=== PATIENT | female | born 1955 | race Caucasian/White ===

== ENCOUNTER → 2022-09-22 | Outpatient (CLI) | payer MEDICARE | END | disposition home or self-care (01) | LOC: SHCH 14:27 | PROVIDERS: ATTEND Student in an Organized Health Care Education/Training Program | DX: R00.2 Palpitations (principal); I10 Essential (primary) hypertension; E78.5 Hyperlipidemia, unspecified | CPT/HCPCS: 93306 ==

== ENCOUNTER → 2022-12-24 | Outpatient (CLI) | payer MEDICARE ==
[2022-12-24 12:11] LABS: CREATININE 0.9 mg/dL (0.5-1.5); POTASSIUM 4.1 mmol/L (3.5-5.1)
== END | disposition home or self-care (01) ==
LOC: LAB 11:03
PROVIDERS: ATTEND Student in an Organized Health Care Education/Training Program
DX: I10 Essential (primary) hypertension (principal)
CPT/HCPCS: 36415; 80048

== ENCOUNTER → 2023-01-11 | Outpatient (CLI) | payer MEDICARE ==
[~2023-01-11] MED LIST: IOHEXOL 350 MG/ML 100ML INFUS..BTL IV ONE
== END | disposition home or self-care (01) ==
LOC: RAH 01-06 07:25
PROVIDERS: ATTEND Student in an Organized Health Care Education/Training Program
DX: R07.9 Chest pain, unspecified (principal); K44.9 Diaphragmatic hernia without obstruction or gangrene; M47.815 Spondylosis without myelopathy or radiculopathy, thoracolumbar region
CPT/HCPCS: 75574; Q9967

== ENCOUNTER 2023-05-06 05:48 | Day surgery (SDC) | payer MEDICARE ==
[2023-05-04 09:12] VITALS: BP 117/62; PULSE 57; RESP 17
[2023-05-04 09:14] LABS: BASOPHILS # (AUTO) 0.07 K/uL (0.00-0.20); BASOPHILS % (AUTO) 0.9 % (0.0-5.0); EOSINOPHILS # (AUTO) 0.23 K/uL (0.00-0.70); EOSINOPHILS % (AUTO) 2.9 % (0.0-8.0); HEMATOCRIT 47.5 % (36-48); IMMATURE GRANULOCYTE ABSOLUTE 0.02 K/uL (0-1); LYMPHOCYTES # (AUTO) 2.8 K/uL (1.0-4.8); LYMPHOCYTES % (AUTO) 35.7 % (21.0-51.0); MEAN CORPUSCULAR HEMOGLOBIN 28.1 pg (27.0-33.0); MEAN CORPUSCULAR HGB CONC 31.2 g/dL (32.0-36.0); MEAN CORPUSCULAR VOLUME 90.3 fL (79-99); MONOCYTES # (AUTO) 0.6 K/uL (0.1-1.0); MONOCYTES % (AUTO) 7.8 % (3.0-13.0); NEUTROPHILS # (AUTO) 4.2 K/uL (1.8-7.7); NEUTROPHILS % (AUTO) 52.4 % (40.0-77.0); PLATELET COUNT (AUTO) 322 K/uL (130-400); RED BLOOD CELL COUNT(AUTO) 5.26 MIL/uL (4.00-5.50); WHITE BLOOD COUNT (AUTO) 7.9 K/uL (4.8-10.8)
[2023-05-04 09:21] LABS: CREATININE 0.9 mg/dL (0.5-1.5); POTASSIUM 3.9 mmol/L (3.5-5.1)
[2023-05-04 09:24] LABS: INR < 0.93 (0.85-1.15); PROTHROMBIN TIME 10.5 SEC (9.6-11.6)
[2023-05-04 09:25] LABS: PARTIAL THROMBOPLASTIN TIME 31.6 SEC (26.3-35.5)
[2023-05-04 09:25] LABS: APPEARANCE,URINE CLEAR (CLEAR); BILIRUBIN,URINE NEGATIVE (NEGATIVE); GLUCOSE, URINE (UA) >=1000 mg/dL (NEGATIVE); KETONES,URINE NEGATIVE (NEGATIVE); LEUKOCYTE ESTERASE ,URINE NEGATIVE Leu/uL (NEGATIVE); NITRATE,URINE NEGATIVE (NEGATIVE); OCCULT BLOOD,URINE NEGATIVE (NEGATIVE); PROTEIN,URINE NEGATIVE (NEGATIVE); UROBILINOGEN,URINE 0.2 mg/dL (0.2-1.0)
[2023-05-04 09:26] LABS: ADD UA MICROSCOPIC YES; COLOR,URINE STRAW (YELLOW)
[2023-05-04 09:27] LABS: RBC,URINE 0-1 /HPF (0-1); SQUAMOUS EPITHELIAL CELL,UR FEW /HPF (0-2); WBC,URINE 0-1 /HPF (0-1)
[2023-05-04 09:37] LABS: B-TYPE NATRIURETIC PEPTIDE 12 pg/mL (0-100)
[~2023-05-06] VITALS: Ht 152.4 cm; Wt 74.9 kg
[~2023-05-06 05:48] MED LIST changes: +ATOR40TA71 PO; +DAPA10TA PO; +DULA1.5P SQ; +INS7030 SQ; -IOHEXOL 350 MG/ML 100ML INFUS..BTL IV ONE
[2023-05-06 06:13] VITALS: BP 127/59; PULSE 59; RESP 19
[2023-05-06] MEDS ORDERED: 0.9%NACL 1000ML 1,000 ML IV ONE (06:16)
[2023-05-06] MEDS ORDERED: NITROGLYCERIN 50MG VIAL ONE (07:10)
[2023-05-06] MEDS ORDERED: VERAPAMIL HCL 2.5 MG/ML VIAL ONE (07:10)
[2023-05-06] MEDS ORDERED: LIDOCAINE HCL 400MG/20ML VIAL ONE (07:10)
[2023-05-06] MEDS ORDERED: IOHEXOL 350 MG/ML 100ML INFUS..BTL IV ONE (07:10)
[2023-05-06] MEDS ORDERED: HEPARIN 10,000 UNIT/10ML (1,000 UNIT/ML) VIAL ONE (07:11)
[2023-05-06] MEDS ORDERED: FENTANYL CITRATE PF 50 MCG/1 ML 2ML VIAL ONE (07:27)
[2023-05-06] MEDS ORDERED: MIDAZOLAM HCL 1 MG/ML 2ML VIAL ONE (07:27)
[2023-05-06] MEDS ORDERED: probiotic gummies PO (07:57)
[2023-05-06] MEDS ORDERED: DEXTROSE 50%-WATER 50 ML DISP.SYRIN IV PRN (08:30)
[2023-05-06] MEDS ORDERED: GLUCAGON 1MG KIT 1 MG ML IM PRN (08:30)
== END 2023-05-06 09:02 | disposition still patient (30) ==
LOC: DAH 05:48
PROVIDERS: ATTEND Student in an Organized Health Care Education/Training Program
DX: I25.119 Atherosclerotic heart disease of native coronary artery with unspecified angina pectoris (principal); I10 Essential (primary) hypertension; E78.5 Hyperlipidemia, unspecified; E11.9 Type 2 diabetes mellitus without complications; I25.2 Old myocardial infarction; Z79.01 Long term (current) use of anticoagulants; Z79.899 Other long term (current) drug therapy; Z95.5 Presence of coronary angioplasty implant and graft; Z98.890 Other specified postprocedural states; Z79.4 Long term (current) use of insulin; Z79.82 Long term (current) use of aspirin
CPT/HCPCS: 80048; 83880 ×2; 85025 ×2; 85610 ×2; 85730 ×2; 81001; 36415 ×2; 71045 ×2; 93005 ×2; 93458; 99285; 82550; 83721; 84484; 80053; 82948 ×2; 70450; C1769; C1887; C1894; J3010; J3490 ×3; J7030; J1644 ×2; J2250; Q9967; A4215; A4222; A4221; A4663; A4216; A4606; Q9965; A4223 ×3; 99156; 99157

== ENCOUNTER 2023-05-06 09:02 | Emergency (ER) | payer MEDICARE ==
[~2023-05-06] VITALS: Ht 167.6 cm; Wt 74.8 kg
[~2023-05-06 09:02] MED LIST changes: +probiotic gummies PO
[2023-05-06 09:14] VITALS: BP 151/65; PULSE 56; RESP 18; O2SAT 99
[2023-05-06] MEDS ORDERED: ASPIRIN 300 MG SUPPOSITORY PR ONE (09:30)
[2023-05-06 09:31] LABS: BASOPHILS # (AUTO) 0.06 K/uL (0.00-0.20); BASOPHILS % (AUTO) 0.7 % (0.0-5.0); EOSINOPHILS # (AUTO) 0.27 K/uL (0.00-0.70); EOSINOPHILS % (AUTO) 3.2 % (0.0-8.0); HEMATOCRIT 43.1 % (36-48); IMMATURE GRANULOCYTE ABSOLUTE 0.02 K/uL (0-1); LYMPHOCYTES # (AUTO) 3.5 K/uL (1.0-4.8); LYMPHOCYTES % (AUTO) 41.8 % (21.0-51.0); MEAN CORPUSCULAR HEMOGLOBIN 28.2 pg (27.0-33.0); MEAN CORPUSCULAR HGB CONC 31.8 g/dL (32.0-36.0); MEAN CORPUSCULAR VOLUME 88.9 fL (79-99); MONOCYTES # (AUTO) 0.5 K/uL (0.1-1.0); MONOCYTES % (AUTO) 6.3 % (3.0-13.0); NEUTROPHILS % (AUTO) 47.8 % (40.0-77.0); PLATELET COUNT (AUTO) 297 K/uL (130-400); RED BLOOD CELL COUNT(AUTO) 4.85 MIL/uL (4.00-5.50); RED CELL DISTRIBUTION WIDTH 12.7 % (11.0-15.5); WHITE BLOOD COUNT (AUTO) 8.4 K/uL (4.8-10.8)
[2023-05-06 09:42] LABS: CREATININE 0.8 mg/dL (0.5-1.5); INR 0.94 (0.85-1.15); POTASSIUM 4.1 mmol/L (3.5-5.1); PROTHROMBIN TIME 10.9 SEC (9.6-11.6)
[2023-05-06 09:46] LABS: ALBUMIN 3.4 g/dL (3.5-5.0); BILIRUBIN,TOTAL 0.4 mg/dL (0.2-1.0); TOTAL PROTEIN, SERUM 7.1 g/dL (6.0-8.3)
[2023-05-06 10:04] LABS: B-TYPE NATRIURETIC PEPTIDE 25 pg/mL (0-100)
[2023-05-06 10:45] LABS: PARTIAL THROMBOPLASTIN TIME > 139.0 SEC (26.3-35.5)
== END 2023-05-06 10:00 | disposition short-term general hospital (02) ==
LOC: EDH 09:02
DX: I63.9 Cerebral infarction, unspecified (principal); E11.9 Type 2 diabetes mellitus without complications; I10 Essential (primary) hypertension; Z88.8 Allergy status to other drugs, medicaments and biological substances
CPT/HCPCS: 36415; 71045; 80053; 82550; 83721; 83880; 84484; 85025; 85610; 85730; 93005

== ENCOUNTER → 2023-10-01 | Outpatient (CLI) | payer MEDICARE ==
[2023-10-01 11:30] LABS: BASOPHILS # (AUTO) 0.05 K/uL (0.00-0.20); BASOPHILS % (AUTO) 0.7 % (0.0-5.0); EOSINOPHILS # (AUTO) 0.16 K/uL (0.00-0.70); EOSINOPHILS % (AUTO) 2.3 % (0.0-8.0); HEMATOCRIT 44.3 % (36-48); IMMATURE GRANULOCYTE ABSOLUTE 0.02 K/uL (0-1); MEAN CORPUSCULAR HEMOGLOBIN 28.5 pg (27.0-33.0); MEAN CORPUSCULAR HGB CONC 33.2 g/dL (32.0-36.0); MONOCYTES # (AUTO) 0.4 K/uL (0.1-1.0); MONOCYTES % (AUTO) 5.1 % (3.0-13.0); NEUTROPHILS # (AUTO) 4.5 K/uL (1.8-7.7); NEUTROPHILS % (AUTO) 63.6 % (40.0-77.0); PLATELET COUNT (AUTO) 311 K/uL (130-400); RED BLOOD CELL COUNT(AUTO) 5.15 MIL/uL (4.00-5.50)
[2023-10-01 11:37] LABS: HEMOGLOBIN A1C 6.8 % (4.0-6.0)
[2023-10-01 11:50] LABS: ALBUMIN 3.9 g/dL (3.5-5.0); BILIRUBIN,TOTAL 0.7 mg/dL (0.2-1.0); CREATININE 0.7 mg/dL (0.5-1.0); THYROID STIMULATING HORMONE 1.73 uIU/mL (0.36-3.74); TOTAL PROTEIN, SERUM 7.7 g/dL (6.0-8.3)
== END | disposition home or self-care (01) ==
LOC: LAB 10:44
PROVIDERS: ATTEND Internal Medicine Nephrology
DX: I10 Essential (primary) hypertension (principal); E11.8 Type 2 diabetes mellitus with unspecified complications; E78.5 Hyperlipidemia, unspecified; R53.83 Other fatigue; Z79.899 Other long term (current) drug therapy
CPT/HCPCS: 36415; 80053; 80061; 82043; 82306; 82570; 83036; 84443; 85025

== ENCOUNTER 2025-03-02 10:28 | Inpatient (IN) | payer MEDICARE ==
[2025-03-02] VITALS (20 sets, daily range): BP systolic 101–162; BP diastolic 51–76; PULSE 55–67; RESP 12–20; TEMP 97–97.9
[~2025-03-02] VITALS: Ht 152.4 cm; Wt 46.3 kg
--- NOTE | 2025-03-02 10:40 | ERN ---
General Chief Complaint: Ankle Problem Stated Complaint: ANKLE FRACTURE, SENT BY PCP Time Seen by MD: 10:35 History of Present Illness Initial Comments 69-year-old female, history of hypertension and prediabetes, presents for right ankle pain status post fall. Patient reports she tripped over a water hose this morning. She did not hit her head. She does not take blood thinners. She has pain to the right ankle generally with some mild swelling. Closed. Neurovascularly intact. She went to an outside facility and was told she had a bimalleolar fracture. Allergies: Coded Allergies: duloxetine (Unverified Allergy, Unknown, 05/04/23) lisinopril (Unverified Allergy, Unknown, 05/04/23) losartan (Unverified Allergy, Unknown, 05/04/23) pennie (Unverified Allergy, Unknown, 05/04/23) metformin (Unverified Allergy, Unknown, 05/04/23) Home Meds Reported Medications [probiotic gummies] No Conflict Check, 2 TAB PO AM 05/06/23 Dapagliflozin Propanediol (Farxiga) 10 Mg Tablet, 10 MG PO HS, TAB 05/04/23 Dulaglutide (Trulicity) 1.5 Mg/0.5 Ml Pen.injctr, 1.5 MG SQ QFRIDAY 05/04/23 Atorvastatin Calcium (Atorvastatin Calcium) 40 Mg Tablet, 40 MG PO HS, TAB 05/04/23 Hum Insulin NPH/Reg Insulin Hm (Humulin 70/30) 100 Unit/Ml (70-30) Inj, 42 UNITS SQ HS, ML 05/04/23 Past Medical History Past Medical History: Diabetes-Type II, Heart Disease, Hypertension Past Surgical History: Tonsillectomy, Other Surgical History Other: CARPAL TUNEEL, LEFT FOOT SX ROS Dictation CONSTITUTIONAL: No chills, no fever, no weakness, no diaphoresis, no malaise. HEAD/FACE: No signs of trauma. EENT: No eye pain, no blurred vision, no tearing, no double vision, no ear pain, no ear discharge, no nose pain, no nasal congestion, no throat pain, no throat swelling, no mouth pain. RESPIRATORY: No cough, no orthopnea, no SOB, no stridor, no wheezing. CARDIOVASCULAR: No chest pain, no edema, no palpitations, no syncope. GASTROINTESTINAL/ABDOMINAL: No abdominal pain, no constipation, no diarrhea, no nausea, no vomiting. GENITOURINARY: No abnormal discharge, no dysuria, no frequent urination, no hematuria. No complaints of pain in the genitals. MUSCULOSKELETAL: Right ankle pain INTEGUMENTARY: No change in color, no change in hair/nails, no dryness, no lesion, no lumps, no rash. NEUROLOGICAL/PSYCH: No anxiety, not depressed, no emotional problem, no headache, no numbness, no pre-existing deficit, no history of seizures, no tremors, no weakness. HEMATOLOGIC/LYMPHATIC: Not anemic, no history of blood clots, no apparent bleeding, no bruising, glands not swollen. All Systems Negative, Except as Noted. Physical Exam Physical Exam Dictation VITAL SIGNS: Reviewed. GENERAL APPEARANCE: Alert, oriented x3, no acute distress HEAD AND FACE: Non-traumatic. EYES: PERRL, pink conjunctivas, eyelid no trauma, anterior chamber clear. EARS: Pinnas intact and no signs of trauma or erythema. Ear canals clear and no discharge. TMs no erythema. NOSE: No discharge, no bleeding. OROPHARYNX: Mouth normal, teeth no caries, tongue pink. Pharynx clear, no erythema. Tonsils no exudates, no abscesses noted. Mucous membrane moist. NECK: Supple, non-tender, no thyromegaly, no masses, no JVD, no bruits. BREAST: Deferred. CHEST: No tenderness, no crepitus, no paradoxical movement, no retractions. LUNGS: Clear, well-ventilated, symmetric, no rales, no wheezing, no rhonchi, no stridor, good breath sounds bilaterally. HEART: Regular rate, regular rhythm, no murmur, no gallops. VASCULAR: No peripheral edema. ABDOMEN: Soft, positive bowel sounds, nondistended, no guarding, nontender, no rebound, no masses no hepatomegaly, no splenomegaly, no Pearson's sign, no hernias. RECTAL: Deferred. GENITAL: Deferred. NEUROLOGICAL: Normal speech, gross motor function intact, gross sensory function intact. MUSCULOSKELETAL: Neck nontender, full range of motion, back nontender, full range of motion. Right ankle tenderness in the lateral and medial malleolus with some mild swelling. Neurovascularly intact. No high fibular head pain EXTREMITIES: Nontender, full range of motion. SKIN: Color pink, dry, no turgor, no rash, no lacerations, no abrasions, no contusions. LYMPHATICS: Deferred. Results Laboratory and Microbiology Lab and Micro Result Laboratory Tests Test 03/02/25 12:31 White Blood Count 8.9 K/uL (4.8-10.8) Red Blood Count 5.50 MIL/uL (4.00-5.50) Hemoglobin 16.0 g/dL (12.0-16.0) Hematocrit 49.2 % (36-48) H Mean Corpuscular Volume 89.5 fL (79-99) Mean Corpuscular Hemoglobin 29.1 pg (27.0-33.0) Mean Corpuscular Hemoglobin Concent 32.5 g/dL (32.0-36.0) Red Cell Distribution Width 12.6 % (11.0-15.5) Platelet Count 255 K/uL (130-400) Mean Platelet Volume 9.2 fL (7.5-10.5) Immature Granulocyte % (Auto) 0.2 % (0-1) Neutrophils (%) (Auto) 67.8 % (40.0-77.0) Lymphocytes (%) (Auto) 26.0 % (21.0-51.0) Monocytes (%) (Auto) 4.3 % (3.0-13.0) Eosinophils (%) (Auto) 1.1 % (0.0-8.0) Basophils (%) (Auto) 0.6 % (0.0-5.0) Neutrophils # (Auto) 6.0 K/uL (1.8-7.7) Lymphocytes # (Auto) 2.3 K/uL (1.0-4.8) Monocytes # (Auto) 0.4 K/uL (0.1-1.0) Eosinophils # (Auto) 0.10 K/uL (0.00-0.70) Basophils # (Auto) 0.05 K/uL (0.00-0.20) Absolute Immature Granulocyte (auto 0.02 K/uL (0-1) Nucleated Red Blood Cells 0.0 % (0.0-0.19) Prothrombin Time 10.3 SEC (9.6-11.6) Prothromb Time International Ratio 0.97 (0.85-1.15) Activated Partial Thromboplast Time 29.3 SEC (26.3-35.5) Sodium Level 137 mmol/L (136-145) Potassium Level 4.3 mmol/L (3.5-5.1) Chloride Level 103 mmol/L (101-111) Carbon Dioxide Level 29 mmol/L (21-32) Blood Urea Nitrogen 27 mg/dL (7-18) H Creatinine 0.7 mg/dL (0.5-1.0) Glomerular Filtration Rate Calc 94 mL/min (>90) Random Glucose 129 mg/dL (70-105) H Total Calcium 9.2 mg/dL (8.5-10.1) MDM CC: Right ankle pain Historian: Patient Comorbidities: Hypertension that he has Limitations by social determinants of health: None Differential diagnosis: Fracture versus soft tissue injury X-ray per my independent interpretation shows a bimalleolar fracture with mild displacement of the fibula side. Consulted orthopedist. Dr. Root. She recommends admission, NPO, splint. Splint placed. IV established, labs drawn for preoperative assessment. EKG ordered. Discussed the case with the hospitalist for admission. ED Course Orders Procedure Category Date Status Time Ankle Comp 3vws Rt RAD 03/02/25 Resulted 10:37 Ibuprofen 600 Mg PHA 03/02/25 Complete Tablet (Motrin) 11:30 Cbc With Differential LAB 03/02/25 Complete 11:58 Basic Metabolic Panel LAB 03/02/25 Complete 11:58 Prothrombin Time With LAB 03/02/25 Complete INR 11:58 Partial LAB 03/02/25 Complete Thromboplastin Time 11:58 Chest 1vw RAD 03/02/25 Resulted 11:58 12 Lead Ekg Tracing- EKG 03/02/25 Resulted Technical 11:58 Finger(S) 2+Vws Rt RAD 03/02/25 Resulted 11:58 Orthopedic Consult CONPHYSVC 03/02/25 Transmitted 12:05 Nothing By Mouth DIET 03/02/25 Transmitted Lunch Obtain Consent For: CPOE 03/02/25 Transmitted 12:15 Hydromorphone 0.5mg PHA 03/02/25 Complete Syg (Dilaudid 0.5mg 13:30 Current Medications Medications (Trade) Dose Ordered Sig/Tavon Route PRN Reason Start Time Stop Time Status Last Admin Dose Admin Ibuprofen (moTRIN) 600 mg ONCE ONCE PO 03/02/25 11:30 03/02/25 11:31 DC 03/02/25 11:39 Vital Signs Date Time Temp Pulse Resp B/P (MAP) Pulse Ox O2 Delivery O2 Flow Rate FiO2 03/02/25 13:10 98.1 64 18 111/61 99 Room Air* 0 03/02/25 10:46 98.1 60 18 115/58 99 Room Air* 0 03/02/25 10:31 98.1 67 18 112/59 99 Room Air DX & DISP Disposition: Inpatient Departure Impression: Primary Impression: Bimalleolar fracture of right ankle Condition: Stable Referrals: MEGHAN ARANDA MD (PCP) CHARLEEN TREVINO DO Mar 02, 2025 10:40
--- NOTE | 2025-03-02 11:54 | HMCIMG ---
EXAM: CR right ankle, 3 View. CLINICAL HISTORY: fracture COMPARISON: None provided. FINDINGS: Mildly displaced oblique fracture of the distal fibula. Mildly displaced fracture of the medial malleolus. Suspected nondisplaced fracture of the posterior malleolus. The ankle mortise, subtalar joint, and visualized midfoot joints remain anatomically aligned. There is an ankle joint effusion and edema surrounding the ankle. IMPRESSION: 1. Bimalleolar ankle fracture with suspected posterior malleolus involvement 2. Ankle joint effusion with surrounding soft tissue edema /[place]
--- NOTE | 2025-03-02 12:30 | EKG ---
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
[2025-03-02 12:43] LABS: IMMATURE GRANULOCYTE ABSOLUTE 0.02 K/uL (0-1); NUCLEATED RED BLOOD CELLS 0.0 % (0.0-0.19); PLATELET COUNT (AUTO) 255 K/uL (130-400); RED BLOOD CELL COUNT(AUTO) 5.50 MIL/uL (4.00-5.50); RED CELL DISTRIBUTION WIDTH 12.6 % (11.0-15.5); WHITE BLOOD COUNT (AUTO) 8.9 K/uL (4.8-10.8)
[2025-03-02 12:55] LABS: CREATININE 0.7 mg/dL (0.5-1.0); GLOMERULAR FILTR. RATE CALC 94.0 mL/min (>90); GLUCOSE,RANDOM 129.0 mg/dL (70-105); SODIUM SERUM 137.0 mmol/L (136-145); UREA NITROGEN, BLOOD 27.0 mg/dL (7-18)
[2025-03-02 12:58] LABS: INR 0.97 (0.85-1.15)
--- NOTE | 2025-03-02 13:02 | HMCIMG ---
FINGER(S) 2+VWS RT REASON: pre-op TECHNIQUE: 3 views were obtained. FINDINGS: There is no evidence of fracture or dislocation. There is mild narrowing of the interphalangeal joints. There is no joint effusion. The soft tissues appear unremarkable. There is no evidence of a radiopaque foreign body. There is osteopenia of the osseous structure. IMPRESSION: No acute findings. No acute fracture or dislocation
--- NOTE | 2025-03-02 13:06 | HMCIMG ---
CHEST 1VW REASON: pre-op COMPARISON: Prior chest radiograph from 05/06/2023 is available. FINDINGS: Single view of the chest was obtained. Lungs are clear. Heart size is normal. There is no pulmonary vascular congestion. Mediastinum and bony thorax appear unremarkable. There is mild osteoarthritic changes with osteophyte seen in thoracic spine. IMPRESSION: 1. No acute cardiopulmonary process and unchanged from prior study.
--- NOTE | 2025-03-02 13:09 | NUR ---
SX CONSENT SIGNED BY PATIENT
--- NOTE | 2025-03-02 13:55 | NUR ---
DR RANKIN AT BEDSIDE FOR ADMISSION ASSESSMENT
[2025-03-02] MEDS ORDERED: REPA1TAB5 PO (15:48)
[2025-03-02] MEDS ORDERED: PREG75CA76 PO (15:48)
[2025-03-02] MEDS ORDERED: ASPI-1443 PO (15:48)
[2025-03-02] MEDS: ENOXAPARIN SODIUM 60 MG/0.6 ML SQ SCH (16:00)
--- NOTE | 2025-03-02 16:02 | NUR ---
OR NURSES HERE FOR PT. PT AOX4 NO SIGNS OF DISTRESS. PAPERWORK GIVEN TO CHANO Bobby RN
[2025-03-02] MEDS ORDERED: LIDOCAINE PF 100MG/5ML (2%) SYRINGE 5ML ONE (16:21)
[2025-03-02] MEDS ORDERED: SUCCINYLCHOLINE CHLORIDE 20 MG/ML 10 ML VIAL ONE (16:22)
[2025-03-02] MEDS ORDERED: MIDAZOLAM HCL 1 MG/ML 2ML VIAL ONE (16:24)
--- NOTE | 2025-03-02 17:04 | CONS ---
CONSULTATION NOTE Date of Service: Mar 02, 2025 Reason for Consultation: Right ankle fracture Requesting Physician: Dr. Diaz HISTORY OF PRESENT ILLNESS: 69-year-old female status post ground level fall after tripping over the wound who sustaining injury to her right ankle. Patient was seen in the emergency room where x-rays showed a right trimalleolar ankle fracture. Orthopedics was consulted for the management of this. REVIEW OF SYSTEMS CONSTITUTIONAL: Denies fever, chills, or fatigue. HEAD/FACE: No signs of trauma. EENT: Denies eye pain, blurred vision, double vision, or light sensitivity. RESPIRATORY: Denies shortness of breath, cough, wheezing CARDIOVASCULAR: Denies chest pain, palpitation, syncope GASTROINTESTINAL/ABDOMINAL: Denies abdominal pain, constipation, diarrhea, nausea or vomiting GENITOURINARY: Denies dysuria or hematuria. MUSCULOSKELETAL: Reports joint pain, tenderness, and trauma. INTEGUMENTARY: Denies rash or itchiness NEUROLOGICAL/PSYCH: Denies anxiety, depression, heat or cold intolerance. PAST MEDICAL HISTORY: Diabetes PAST SURGICAL HISTORY: Left transmetatarsal amputation Bilateral carpal tunnel release Lumpectomy Tonsillectomy PAST SOCIAL HISTORY: Denies tobacco or illicit drug use Rare alcohol use Lives independently and uses no assistive devices for ambulation FAMILY HISTORY: Noncontributory Coded Allergies: duloxetine (Unverified Allergy, Unknown, 05/04/23) lisinopril (Unverified Allergy, Unknown, 05/04/23) losartan (Unverified Allergy, Unknown, 05/04/23) pennie (Unverified Allergy, Unknown, 05/04/23) metformin (Unverified Allergy, Unknown, 05/04/23) PHYSICAL EXAM EYES: Anicteric. HENT: Moist Oral mucosa NECK: Supple LUNGS: Nonlabored breathing CARDIOVASCULAR: Regular rate ABDOMEN: Nondistended CENTRAL NERVOUS SYSTEM: Awake, alert, oriented x 3. No focal deficits. SKIN: No lacerations, no abrasions, no ecchymosis LYMPHATICS: No peripheral lymphadenopathy MUSCULOSKELETAL: Right lower extremity with splint in place without gross deformity. Sensation intact to light touch in superficial and deep peroneal as well as tibial nerve distribution. Brisk capillary refill x5. Intact EHL and FHL function EXTREMITIES: No cyanosis or clubbing BACK: Deferred GENITOURINARY: Deferred Vital Sign (Last 24 Hours) 03/02/25 15:43 Temp 98.1 Pulse 64 Resp 18 B/P (MAP) 123/96 Pulse Ox 99 O2 Delivery Room Air* O2 Flow Rate 0 FiO2 21 LABS: Laboratory: Test 03/02/25 12:31 Range/Units White Blood Count 8.9 4.8-10.8 K/uL Red Blood Count 5.50 4.00-5.50 MIL/uL Hemoglobin 16.0 12.0-16.0 g/dL Hematocrit 49.2 H 36-48 % Mean Corpuscular Volume 89.5 79-99 fL Mean Corpuscular Hemoglobin 29.1 27.0-33.0 pg Mean Corpuscular Hemoglobin Concent 32.5 32.0-36.0 g/dL Red Cell Distribution Width 12.6 11.0-15.5 % Platelet Count 255 130-400 K/uL Mean Platelet Volume 9.2 7.5-10.5 fL Immature Granulocyte % (Auto) 0.2 0-1 % Neutrophils (%) (Auto) 67.8 40.0-77.0 % Lymphocytes (%) (Auto) 26.0 21.0-51.0 % Monocytes (%) (Auto) 4.3 3.0-13.0 % Eosinophils (%) (Auto) 1.1 0.0-8.0 % Basophils (%) (Auto) 0.6 0.0-5.0 % Neutrophils # (Auto) 6.0 1.8-7.7 K/uL Lymphocytes # (Auto) 2.3 1.0-4.8 K/uL Monocytes # (Auto) 0.4 0.1-1.0 K/uL Eosinophils # (Auto) 0.10 0.00-0.70 K/uL Basophils # (Auto) 0.05 0.00-0.20 K/uL Absolute Immature Granulocyte (auto 0.02 0-1 K/uL Nucleated Red Blood Cells 0.0 0.0-0.19 % Prothrombin Time 10.3 9.6-11.6 SEC Prothromb Time International Ratio 0.97 0.85-1.15 Activated Partial Thromboplast Time 29.3 26.3-35.5 SEC Sodium Level 137 136-145 mmol/L Potassium Level 4.3 3.5-5.1 mmol/L Chloride Level 103 101-111 mmol/L Carbon Dioxide Level 29 21-32 mmol/L Blood Urea Nitrogen 27 H 7-18 mg/dL Creatinine 0.7 0.5-1.0 mg/dL Glomerular Filtration Rate Calc 94 >90 mL/min Random Glucose 129 H 70-105 mg/dL Total Calcium 9.2 8.5-10.1 mg/dL DIAGNOSTICS / RADIOLOGY: Three views of the right ankle with Trimalleolar right ankle fracture with minimal displacement ASSESSMENT: 69-year-old diabetic female with right trimalleolar ankle fracture PLAN: Discussed with the patient the risks, benefits, and alternatives to undergoing operative fixation and she was agreeable. to OR today for open reduction internal fixation right ankle LINDY LAWSON MD Mar 02, 2025 17:04
[2025-03-02] MEDS ORDERED: GLYCOPYRROLATE 0.2 MG/ML 5 ML VIAL ONE (17:11)
--- NOTE | 2025-03-02 18:38 | NUR ---
PT GOING TO ROOM 425 CALLED FLOOR ROOM IS DIRTY PT IS IN OR LEFT ER AT 1600
--- NOTE | 2025-03-02 18:46 | OP ---
Operative Note: DATE OF PROCEDURE: 03/02/25 SURGEON: LINDY LAWSON MD CORPORATE RESPONSIBILITY OFFICER: Navin Mancilla ANESTHESIA: General and femoral and popliteal blocks ANESTHESIOLOGIST/TOLL GATE TENDER: Frandy Joy CRNA PREOPERATIVE DIAGNOSIS: Right ankle trimalleolar fracture POSTOPERATIVE DIAGNOSIS: Right ankle trimalleolar fracture PROCEDURE: Open reduction internal fixation of medial and lateral malleoli from right trimalleolar ankle fracture ESTIMATED BLOOD LOSS: 10 cc INDICATIONS: 69-year-old female status post ground level fall with a right ankle injury. Seen in emergency room with right ankle trimalleolar fracture. After discussion of the risks, benefits, and alternatives, the patient voluntarily agreed to undergo the aforementioned procedure. IMPLANTS: [employer] five hole distal fibular locking plate with 3.5 mm locking screws, 4.0 mm partially-threaded cannulated screw x1 DESCRIPTION OF PROCEDURE: Patient was properly identified in the preoperative holding area. Surgical site marking was verified and surgery consent reviewed. The patient was then taken to the operating room and placed in supine position on the OR table. After induction of general anesthesia, preoperative antibiotics were given, all bony prominences were well-padded, and a well padded tourniquet was applied but not inflated at this time. The right lower extremity was then prepped and draped in usual sterile fashion. Surgical timeout was done verifying correct surgery, side, site, and location to be performed. We then began the procedure by exsanguinating the limb using Esmarch and inflating the tourniquet to 350 mmHg. We then used a 15 blade to make approximately 10 cm long incision directly over the lateral malleolus centered over the fracture site. We came sharply through the skin dissected carefully through the subcutaneous tissue and identified the subcutaneous border of the fibula. We cut down sharply onto the fibula using a 15 blade. We then used our periosteal elevator to elevate soft tissue off of the bone both in the proximal and distal direction as well as anterior and posterior direction. We identified the fracture site. The fracture site was then distracted and interposed soft tissue and hematoma was debrided using a curette. We then achieved our fracture reduction using a lion-jaw clamp and held our reduction with a [id number] reduction clamp. This was then visualized under AP and mortise fluoroscopic views and found to be appropriately reduced with fibula out to length. We then selected a plate. This was then held in place proximally and distally with a 3.5 mm cortical screws. We verified under fluoroscopic views of the the hardware was in appropriate position and fracture reduction maintained. We then began to drill and fill to screw holes above and below the fracture site with 3.5 locking screws. The distal cortical screw was removed as it did not have good purchase and replaced with a locking screw. This was done in standard fashion. At this point we focused our attention on the medial malleolus where we made an approximately 5 cm long incision. We then dissected carefully through the subcutaneous tissue. We then identified our fracture site and cleaned surrounding periosteum and other soft tissue as well as hematoma from within the fracture site. The fracture reduction was then verified to be reduced under AP and mortise fluoroscopic views. We then placed our guidepin for cancellus screw and verified these to be appropriate position under AP lateral and mortise fluoroscopic views. We then drilled and filled over the guide pin in standard fashion. Once we had this hardware in place we then removed the guidewire. We then obtained our final AP mortise and lateral fluoroscopic views. These were saved to the PACS system and they were interpreted by me. We then thoroughly irrigated out the wound with normal saline and began to repair the subcutaneous tissue using a 2-0 Vicryl. Running 3-0 Monocryl in subcuticular fashion with Dermabond applied over this was used to close the skin. Sterile dressing with a posterior splint with a U was then applied. Tourniquet was then deflated. Patient was awakened from anesthesia and taken to the recovery room in stable condition. LINDY LAWSON MD Mar 02, 2025 18:46
[2025-03-02] MEDS: 0.9%NACL 1000ML 1,000 ML IV SCH (19:00)
[2025-03-02] MEDS ORDERED: CALCIUM CARB 500MG PO PRN (19:00)
[2025-03-02] MEDS ORDERED: PoTASSium chl 10% ELIXIR 20MEQ 20 MEQ/15 ML UDCUP PO PRN (19:00)
[2025-03-02] MEDS ORDERED: PoTASSium chloRIDE 20MEQ ER 20 MEQ ERTAB PO PRN (19:00)
[2025-03-02] MEDS ORDERED: FERROUS FUMARATE 324 MG TABLET PO PRN (19:00)
[2025-03-02] MEDS ORDERED: HYDROcodone/APAP 5/325 1 TAB TABLET PO PRN ×2 (19:00→20:00)
--- NOTE | 2025-03-02 21:49 | HP ---
DATE OF SERVICE: 03/02/2025 HISTORY AND PHYSICAL PRESENTING COMPLAINT: Right ankle pain and swelling. HISTORY OF PRESENT ILLNESS: A 69-year-old female with history of hypertension, diabetes mellitus, presented to the hospital with right ankle pain after sustaining a fall at home. The patient claims she tripped on a hole and fell to the ground. No history of headache or dizziness. Denies syncopal episode. No chest pain. No palpitation. No orthopnea. X-ray of the right ankle shows right bimalleolar fracture. This has been discussed by the ER physician with orthopedics who advised to keep the patient n.p.o. in case of surgery will be done today. PAST MEDICAL HISTORY: * Diabetes mellitus. * Hypertension. * Left foot infection PAST SURGICAL HISTORY: * Left foot transmetatarsal amputation. * Right leg wound debridement. * Upper abdominal surgery. * Hysterectomy ALLERGIES: No known drug allergies. HOME MEDICATIONS: To be reviewed. SOCIAL HISTORY: No alcohol, tobacco or illicit drug use. FAMILY HISTORY: Positive for diabetes mellitus. REVIEW OF SYSTEMS: CONSTITUTIONAL: No fever or chills. No weight loss or night sweats. EYES: No eye pain. No photophobia or diplopia. HENT: No sore throat. No rhinorrhea or earache. NECK: No neck pain or neck swelling. RESPIRATORY: No cough. No hemoptysis or pleuritic pain. CARDIOVASCULAR: No chest pain. No palpitations or orthopnea. GASTROINTESTINAL: Denies nausea, vomiting, or abdominal pain. GENITOURINARY: No dysuria, urgency, or urinary frequency. CENTRAL NERVOUS SYSTEM: No headache, dizziness or slurred speech. PSYCHIATRIC: No depression. No suicidal ideation. MUSCULOSKELETAL: Positive for right ankle pain, swelling. No redness. PHYSICAL EXAMINATION: GENERAL: Elderly female, awake. VITAL SIGNS: Temperature 98.1, pulse is 64, respiratory rate 18, BP 121/61. EYES: No icterus. Pupils are equal and reactive. HENT: No oral thrush seen. Moist oral mucosa. NECK: Supple. No JVD or thyromegaly. LUNGS: Good air entry. No rales. No rhonchi. CARDIOVASCULAR SYSTEM: S1 and S2 regular. No murmur heard. ABDOMEN: Full, soft, nontender. Bowel sounds pleasant. CENTRAL NERVOUS SYSTEM: Awake, alert and oriented x 3. No focal deficits. SKIN: No rashes. No itchiness. LYMPHATIC: No peripheral lymphadenopathy. BACK: No deformity. No pressure ulcer. MUSCULOSKELETAL: Tenderness, edema, deformity involving the right ankle. LABORATORY DATA: Sodium 137, potassium 4.3, BUN 27, creatinine 0.7. WBC 8.9, hemoglobin 16.0, platelets 255. RADIOLOGY: Right ankle x-ray showed right ankle bimalleolar fracture. ASSESSMENT: A 69-year-old female admitted with fall. Current problems include: * Right ankle bimalleolar fracture * Mechanical fall. * Hypertension. * Diabetes mellitus. PLAN: * Admit the patient to medical floor. * The patient made n. p.o. * Morphine as need for pain or fever. * Zofran as needed for nausea and vomiting * ADA diet. * Insulin sliding scale. * Lovenox for DVT prophylaxis. * Orthopedic evaluation. * Home medications will be reconciled. TID: [id number] RECEIPT: [id number] MTD
[2025-03-02] MEDS: HYDROcodone/APAP 5/325 1 TAB TABLET PO PRN (23:15)
[2025-03-03] VITALS (8 sets, daily range): BP systolic 103–149; BP diastolic 52–71; PULSE 60–89; RESP 17–20; TEMP 97.6–98.5; O2SAT 98–100
[2025-03-03 05:11] LABS: IMMATURE GRANULOCYTE ABSOLUTE 0.03 K/uL (0-1); NUCLEATED RED BLOOD CELLS 0.0 % (0.0-0.19); PLATELET COUNT (AUTO) 256 K/uL (130-400); RED BLOOD CELL COUNT(AUTO) 4.67 MIL/uL (4.00-5.50); RED CELL DISTRIBUTION WIDTH 12.7 % (11.0-15.5); WHITE BLOOD COUNT (AUTO) 8.2 K/uL (4.8-10.8)
[2025-03-03 05:20] LABS: INR 0.97 (0.85-1.15)
[2025-03-03 05:29] LABS: ASPARTATE AMINOTRANSFERASE 27.0 U/L (10-37); CREATININE 0.7 mg/dL (0.5-1.0); GLOMERULAR FILTR. RATE CALC 94.0 mL/min (>90); GLUCOSE,RANDOM 188.0 mg/dL (70-105); SODIUM SERUM 140.0 mmol/L (136-145); TOTAL PROTEIN, SERUM 6.5 g/dL (6.0-8.3); UREA NITROGEN, BLOOD 24.0 mg/dL (7-18)
--- NOTE | 2025-03-03 09:56 | HMCIMG ---
ANKLE COMP 3VWS RT REASON: ORIF RIGHT ANKLE TECHNIQUE: 5 views were obtained. FINDINGS: Patient is undergoing a right ankle ORIF with placement of orthopedic plates in the distal fibula and orthopedic screw seen in the medial malleolus. Orthopedic hardware in the ankle mortise joint appears to be anatomical position.. Fluoroscopy time 44.7 seconds IMPRESSION: Details of the finding in the operative notes.
--- NOTE | 2025-03-03 13:51 | NUR ---
DCP: INITIAL ASSESSMENT Patient lives alone. She has no home services or DME. Patient is able to complete ADLs independently and drives. PCP is Dr. Miryam Whitt. Pharmacy is [facility] located on [address] [place] [address] in [place]. Patient voiced no safety concerns regarding returning home and states she has no difficulty with housing or buying food. DCP is home. Addendum: 03/03/25 at 1352 by MARICEL HATFIELD SS Amended: Links added.
--- NOTE | 2025-03-03 13:52 | NUR ---
EMERGENCY CONTACTS Bina Camacho (son) - Jonna Little (sibling)
[2025-03-03] MEDS: PSYLLIUM SEED 1 EACH PACKET PO SCH (14:25)
[2025-03-03] MEDS ORDERED: REPA1TAB5 PO (16:52)
[2025-03-03] MEDS ORDERED: SEMA2PEN SQ (16:52)
[2025-03-03] MEDS ORDERED: ASPI-1197 PO (16:52)
[2025-03-03] MEDS ORDERED: PREG75CA76 PO (16:52)
[2025-03-03] MEDS: REPAGLINIDE 1 MG TAB PO SCH (17:00)
[2025-03-03] MEDS: ASPIRIN 81MG CHEW TAB PO SCH (20:52)
[2025-03-03] MEDS: (Dapagliflozin Propanediol (Farxiga) 10 MG) PO SCH (20:58)
--- NOTE | 2025-03-03 21:25 | PN ---
INFECTIOUS DISEASE PROGRESS NOTE Date of Service: Mar 03, 2025 SUBJECTIVE: This is a 69-year-old female patient who was admitted for right ankle pain after sustaining a fall at home. An x-ray of the right ankle showed a bimalleolar ankle fracture with suspected posterior malleolus involvement. Orthopedic surgeon was consulted and patient underwent an open reduction internal fixation of medial and lateral malleoli from the right trimalleolar ankle fracture. During rounding today patient is pending physical therapy evaluation. Splint in place. Stated pain is tolerable at this time. We will continue to follow patient's care. PHYSICAL EXAM EYES: Anicteric. Pupils equal and reactive. HENT: No oral thrush seen, moist Oral mucosa NECK: Supple, no JVD or thyromegaly. LUNGS: Good air entry. No rales, no rhonchi. CARDIOVASCULAR: S1, S2 regular. No murmur heard. ABDOMEN: Soft, non tender, bowel sounds present, no organomegaly CENTRAL NERVOUS SYSTEM: Awake, alert, oriented x 3. SKIN: No rashes, no swelling. LYMPHATICS: No peripheral lymphadenopathy MUSCULOSKELETAL: No joint swelling, erythema or tenderness. EXTREMITIES: No cyanosis or clubbing. Right ankle trimalleolar fracture, s/p ORIF. BACK: No deformity, no pressure ulcer. GENITOURINARY: No dysuria or hematuria Vital Sign (Last 12 Hours) 03/03/25 03/03/25 12:00 16:00 Temp 97.5 98.1 Pulse 61 64 Resp 18 18 B/P (MAP) 116/59 121/66 Pulse Ox 100 99 O2 Delivery Room Air Room Air O2 Flow Rate 0.0 0.0 LABS: Laboratory: Test 03/03/25 19:49 03/03/25 04:53 03/02/25 12:31 Range/Units Whole Blood Glucose 196 H 70-110 MG/DL White Blood Count 8.2 4.8-10.8 K/uL Red Blood Count 4.67 4.00-5.50 MIL/uL Hemoglobin 13.8 12.0-16.0 g/dL Hematocrit 41.5 36-48 % Mean Corpuscular Volume 88.9 79-99 fL Mean Corpuscular Hemoglobin 29.6 27.0-33.0 pg Mean Corpuscular Hemoglobin Concent 33.3 32.0-36.0 g/dL Red Cell Distribution Width 12.7 11.0-15.5 % Platelet Count 256 130-400 K/uL Mean Platelet Volume 9.6 7.5-10.5 fL Immature Granulocyte % (Auto) 0.4 0-1 % Neutrophils (%) (Auto) 77.3 H 40.0-77.0 % Lymphocytes (%) (Auto) 16.7 L 21.0-51.0 % Monocytes (%) (Auto) 5.4 3.0-13.0 % Eosinophils (%) (Auto) 0.0 0.0-8.0 % Basophils (%) (Auto) 0.2 0.0-5.0 % Neutrophils # (Auto) 6.3 1.8-7.7 K/uL Lymphocytes # (Auto) 1.4 1.0-4.8 K/uL Monocytes # (Auto) 0.4 0.1-1.0 K/uL Eosinophils # (Auto) 0.00 0.00-0.70 K/uL Basophils # (Auto) 0.02 0.00-0.20 K/uL Absolute Immature Granulocyte (auto 0.03 0-1 K/uL Nucleated Red Blood Cells 0.0 0.0-0.19 % Prothrombin Time 10.3 9.6-11.6 SEC Prothromb Time International Ratio 0.97 0.85-1.15 Sodium Level 140 136-145 mmol/L Potassium Level 4.1 3.5-5.1 mmol/L Chloride Level 106 101-111 mmol/L Carbon Dioxide Level 22 21-32 mmol/L Blood Urea Nitrogen 24 H 7-18 mg/dL Creatinine 0.7 0.5-1.0 mg/dL Glomerular Filtration Rate Calc 94 >90 mL/min Random Glucose 188 H 70-105 mg/dL Total Calcium 8.8 8.5-10.1 mg/dL Magnesium Level 2.00 1.80-2.40 mg/dL Total Bilirubin 0.8 0.2-1.0 mg/dL Aspartate Amino Transf (AST/SGOT) 27 10-37 U/L Alanine Aminotransferase (ALT/SGPT) 49 12-78 U/L Alkaline Phosphatase 101 50-136 U/L Total Protein 6.5 6.0-8.3 g/dL Albumin 3.5 3.5-5.0 g/dL Activated Partial Thromboplast Time 29.3 26.3-35.5 SEC ASSESSMENT: Right ankle trimalleolar fracture, s/p ORIF. Status post mechanical fall. Diabetes mellitus. PLAN: Continue pain management. Physical therapy as recommended by orthopedic surgeon. Continue antidiabetics. We will monitor electrolytes. Fall precautions. This case was reviewed and discussed with my supervising physician and the above assessment and plan was formulated and agreed upon. ATTESTATION BY PHYSICIAN I have seen and examined the patient. I reviewed the documentation, medical decision making, and treatment plan as noted by the mid-level provider above. I agree with the findings and plan of care. HUNG RANKIN MD, MIRTA L [facility] Mar 03, 2025 21:25
[2025-03-04] VITALS (7 sets, daily range): BP systolic 98–126; BP diastolic 48–74; PULSE 55–69; RESP 18–20; TEMP 97.4–98.7; O2SAT 98
[2025-03-04 05:20] LABS: NUCLEATED RED BLOOD CELLS 0.0 % (0.0-0.19); PLATELET COUNT (AUTO) 189.0 K/uL (130-400); RED BLOOD CELL COUNT(AUTO) 3.98 MIL/uL (4.00-5.50); RED CELL DISTRIBUTION WIDTH 13.1 % (11.0-15.5); WHITE BLOOD COUNT (AUTO) 8.2 K/uL (4.8-10.8)
[2025-03-04 05:31] LABS: CREATININE 0.5 mg/dL (0.5-1.0); GLOMERULAR FILTR. RATE CALC 102.0 mL/min (>90); GLUCOSE,RANDOM 108.0 mg/dL (70-105); SODIUM SERUM 140.0 mmol/L (136-145); UREA NITROGEN, BLOOD 26.0 mg/dL (7-18)
[2025-03-04 05:38] LABS: INR 0.99 (0.85-1.15)
[2025-03-04] MEDS: HYDROcodone/APAP 5/325 1 TAB TABLET PO PRN (16:05)
--- NOTE | 2025-03-04 16:50 | PN ---
Orthopedic postop day two Patient states pain is tolerable and reports she has been out of bed moving with physical therapy. She states that she would like to go to [facility] for rehab since she has significant difficulty ambulating due to contralateral TMA and lives alone. Denies other complaints at this time. Vital signs stable, afebrile No acute distress, alert and oriented x3 Nonlabored breathing Right lower extremity -surgical splint in place dry and intact with dried blood present along the lateral aspect. -sensation intact to light touch in superficial and deep peroneal as well as tibial nerve-distributions. -intact EHL and FHL function -brisk capillary refill x5 A/P: Postop day two status post open reduction internal fixation right ankle medial and lateral malleoli - patient to remain nonweightbearing right lower extremity for a minimum of six possibly eight weeks - continue to ice and elevate to help with pain and swelling - case management to work on discharge planning - physical therapy to continue to work on mobilizing patient - continue pain control. Vitals/Labs Vital Signs Date Time Temp Pulse Resp B/P (MAP) Pulse Ox O2 Delivery O2 Flow Rate FiO2 03/04/25 16:24 98.8 65 20 124/63 98 Room Air 03/04/25 08:00 0 21 Laboratory Tests 03/04/25 04:44 Medications Current Medications Ibuprofen 600 mg ONCE ONCE PO Last administered on 03/02/25at 11:39; Start 03/02/25 at 11:30; Stop 03/02/25 at 11:31; Status DC Hydromorphone HCl 0.2 mg ONCE ONCE IVP Last administered on 03/02/25at 13:29; Start 03/02/25 at 13:30; Stop 03/02/25 at 13:31; Status DC Ondansetron HCl 4 mg Q6H PRN IVP; Start 03/02/25 at 15:00; Stop 04/01/25 at 14:59 Hydromorphone HCl 0.5 mg Q6H PRN IVP; Start 03/02/25 at 15:00; Stop 03/03/25 at 16:59; Status DC Morphine Sulfate 2 mg Q6H PRN IVP; Start 03/02/25 at 15:00; Stop 03/03/25 at 16:59; Status DC Insulin Human Regular INSULIN SLIDING SCAL... ACHS SQ Last administered on 03/03/25at 20:53; Start 03/02/25 at 16:30; Stop 04/01/25 at 16:29 Enoxaparin Sodium 1 unit Q24H SQ; Start 03/02/25 at 16:00; Stop 03/02/25 at 15:55; Status DC Enoxaparin Sodium 50 mg Q24H SQ Last administered on 03/04/25at 16:06; Start 03/02/25 at 16:00; Stop 04/01/25 at 15:59 Ropivacaine 150 mg STK-MED ONCE .ROUTE; Start 03/02/25 at 16:19; Stop 03/02/25 at 16:19; Status DC Lidocaine HCl 100 mg STK-MED ONCE .ROUTE; Start 03/02/25 at 16:21; Stop 03/02/25 at 16:22; Status DC Dexamethasone Sodium Phosphate 4 mg STK-MED ONCE .ROUTE; Start 03/02/25 at 16:21; Stop 03/02/25 at 16:22; Status DC Succinylcholine Chloride 200 mg STK-MED ONCE .ROUTE; Start 03/02/25 at 16:22; Stop 03/02/25 at 16:22; Status DC Propofol 200 mg STK-MED ONCE IV; Start 03/02/25 at 16:22; Stop 03/02/25 at 16:22; Status DC Midazolam HCl 2 mg STK-MED ONCE .ROUTE; Start 03/02/25 at 16:24; Stop 03/02/25 at 16:24; Status DC Ketamine HCl 50 mg STK-MED ONCE .ROUTE; Start 03/02/25 at 16:24; Stop 03/02/25 at 16:24; Status DC Phenylephrine HCl 10 mg STK-MED ONCE IV; Start 03/02/25 at 17:07; Stop 03/02/25 at 17:08; Status DC Cefazolin Sodium 1 gm STK-MED ONCE .ROUTE; Start 03/02/25 at 17:10; Stop 03/02/25 at 17:10; Status DC Glycopyrrolate 1 mg STK-MED ONCE .ROUTE; Start 03/02/25 at 17:11; Stop 03/02/25 at 17:11; Status DC Ephedrine Sulfate 50 mg STK-MED ONCE .ROUTE; Start 03/02/25 at 17:13; Stop 03/02/25 at 17:13; Status DC Sodium Chloride 1,000 ml @ 100 mls/hr Q10H IV; Start 03/02/25 at 19:00; Stop 03/03/25 at 14:20; Status DC Polyethylene Glycol 17 gm DAILY PO Last administered on 03/03/25at 10:34; Start 03/03/25 at 09:00; Stop 04/02/25 at 08:59 Psyllium Hydrophilic Mucilloid 1 tbs DAILYLUNCH PO Last administered on 03/03/25at 14:25; Start 03/03/25 at 12:00; Stop 04/02/25 at 11:59 Bisacodyl 10 mg DAILY PRN PO; Start 03/04/25 at 19:00; Stop 04/03/25 at 18:59 Bisacodyl 10 mg DAILY PRN RC; Start 03/05/25 at 19:00; Stop 04/04/25 at 18:59 Ketorolac Tromethamine 15 mg Q6H PRN IV Last administered on 03/04/25at 16:12; Start 03/02/25 at 19:00; Stop 03/07/25 at 18:59 Ferrous Fumarate 324 mg DAILY PRN PO; Start 03/02/25 at 19:00; Stop 04/01/25 at 18:59 Calcium Carbonate 500 mg Q12H PRN PO; Start 03/02/25 at 19:00; Stop 04/01/25 at 18:59 Cefazolin Sodium 2 gm Q8H IVP Last administered on 03/03/25at 03:55; Start 03/02/25 at 19:00; Stop 03/03/25 at 03:01; Status DC Potassium Chloride 100 ml @ 100 mls/hr AD PRN IV; Start 03/02/25 at 19:00; Stop 04/01/25 at 18:59 Potassium Chloride 20 meq AD PRN PO; Start 03/02/25 at 19:00; Stop 04/01/25 at 18:59 Potassium Chloride 20 meq AD PRN PO; Start 03/02/25 at 19:00; Stop 04/01/25 at 18:59 Tramadol HCl 50 mg Q6H PRN PO Last administered on 03/04/25at 10:53; Start 03/02/25 at 19:00; Stop 03/07/25 at 18:59 Acetaminophen/ Hydrocodone Bitart Q4H PRN PO; Start 03/02/25 at 19:00; Stop 03/02/25 at 19:40; Status DC Acetaminophen/ Hydrocodone Bitart 1 tab Q6H PRN PO Last administered on 03/04/25at 07:51; Start 03/02/25 at 20:00; Stop 03/04/25 at 15:46; Status DC Acetaminophen/ Hydrocodone Bitart 2 tab Q6H PRN PO; Start 03/02/25 at 20:00; Stop 03/03/25 at 18:42; Status DC Aspirin 81 mg HS PO Last administered on 03/03/25at 20:52; Start 03/03/25 at 21:00; Stop 04/02/25 at 20:59 Atorvastatin Calcium 40 mg HS PO Last administered on 03/03/25at 20:51; Start 03/03/25 at 21:00; Stop 04/02/25 at 20:59 Pregabalin 75 mg HS PO Last administered on 03/03/25at 20:52; Start 03/03/25 at 21:00; Stop 04/02/25 at 20:59 Repaglinide 1 mg BIDMEALS PO Last administered on 03/04/25at 16:05; Start 03/03/25 at 17:00; Stop 04/02/25 at 16:59 Home Med (Dapagliflozin Propanediol (Farxiga)... HS PO; Start 03/03/25 at 21:00; Stop 04/02/25 at 20:59 Home Med (Semaglutide (Ozempic) 2 MG) QWEEK SQ; Start 03/10/25 at 09:00; Stop 04/09/25 at 08:59 Morphine Sulfate 2 mg Q6H PRN IVP Last administered on 03/04/25at 12:13; Start 03/03/25 at 19:00; Stop 03/10/25 at 18:59 Acetaminophen/ Hydrocodone Bitart 1 TAB FOR PAIN 4-6/ 10 2 ... Q6H PRN PO Last administered on 03/04/25at 16:05; Start 03/04/25 at 16:00; Stop 03/09/25 at 15:59 LINDY LAWSON MD Mar 04, 2025 16:50
[2025-03-05 03:48] VITALS: BP 114/66; PULSE 64; RESP 17; TEMP 97.8
[2025-03-05 05:23] LABS: NUCLEATED RED BLOOD CELLS 0.0 % (0.0-0.19); PLATELET COUNT (AUTO) 192.0 K/uL (130-400); RED BLOOD CELL COUNT(AUTO) 3.87 MIL/uL (4.00-5.50); RED CELL DISTRIBUTION WIDTH 13.0 % (11.0-15.5); WHITE BLOOD COUNT (AUTO) 6.5 K/uL (4.8-10.8)
[2025-03-05 05:48] LABS: INR <= 0.93 (0.85-1.15)
[2025-03-05 05:52] LABS: CREATININE 0.6 mg/dL (0.5-1.0); GLOMERULAR FILTR. RATE CALC 98.0 mL/min (>90); GLUCOSE,RANDOM 112.0 mg/dL (70-105); SODIUM SERUM 141.0 mmol/L (136-145); UREA NITROGEN, BLOOD 22.0 mg/dL (7-18)
--- NOTE | 2025-03-05 07:28 | PN ---
INFECTIOUS DISEASE FOLLOWUP NOTE DATE OF SERVICE: 03/04/2025 SUBJECTIVE: The patient is seen on examination at the bedside today pain to the right ankle. No fever or chills. No nausea. No vomiting. No abdominal pain. for physical therapy. She is requesting . Referral has been made. PHYSICAL EXAMINATION: VITAL SIGNS: Temperature 96.8. EYES: No icterus. Pupils equal and reactive. HENT: No oral thrush seen. Moist oral mucosa. NECK: Supple. No JVD or thyromegaly. LUNGS: Good air entry. No rales, no rhonchi. CARDIOVASCULAR SYSTEM: S1 and S2 regular. No murmur heard. ABDOMEN: Obese, soft, nontender. Bowel sound is present. CENTRAL NERVOUS SYSTEM: Awake, alert, oriented x 3. No focal deficits. SKIN: No rashes, no itchiness. LYMPHATIC: No peripheral lymphadenopathy. BACK: No deformity. No pressure ulcer. EXTREMITIES: No joint swelling, erythema . ASSESSMENT: A 69-year-old female with multiple problems with include, * Right ankle trimalleolar fracture. * Mechanical fall. * Hypertension. * Diabetes mellitus. * Debility. PLAN: * Continue pain management. * . * Continue DVT prophylaxis. * Continue antihypertensives. * Continue nutritional support. * The patient will be discharged to SNF . TID: [id number] RECEIPT: [id number]
[2025-03-05 08:00] VITALS: BP 126/55; PULSE 70; RESP 16; TEMP 97.4; O2SAT 97
[2025-03-05 12:00] VITALS: BP 137/67; PULSE 66; RESP 18; TEMP 97.8
[2025-03-05 16:00] VITALS: BP 129/67; PULSE 61; RESP 16; TEMP 97.9
[2025-03-05 19:15] VITALS: O2SAT 96
--- NOTE | 2025-03-05 19:22 | PN ---
INFECTIOUS DISEASE PROGRESS NOTE Date of Service: Mar 05, 2025 SUBJECTIVE: This is a 69-year-old female patient who was seen and examined at bedside. Patient is s/p open reduction internal fixation of medial and lateral malleoli from the right trimalleolar ankle fracture on 03/02/2025. Patient with splint on the right lower extremity with non weight bearing status. Patient will be referred to SNF for rehab. Will continue to follow patient's care. PHYSICAL EXAM EYES: Anicteric. Pupils equal and reactive. HENT: No oral thrush seen, moist Oral mucosa. NECK: Supple, no JVD or thyromegaly. LUNGS: Good air entry. No rales, no rhonchi. CARDIOVASCULAR: S1, S2 regular. No murmur heard. ABDOMEN: Soft, non tender, bowel sounds present, no organomegaly. CENTRAL NERVOUS SYSTEM: Awake, alert, oriented x 3. SKIN: No rashes, no swelling. LYMPHATICS: No peripheral lymphadenopathy MUSCULOSKELETAL: No joint swelling, erythema or tenderness. EXTREMITIES: No cyanosis or clubbing. Right ankle trimalleolar fracture, s/p ORIF. BACK: No deformity, no pressure ulcer. GENITOURINARY: No dysuria or hematuria. Vital Sign (Last 12 Hours) 03/05/25 03/05/25 03/05/25 03/05/25 08:00 08:00 12:00 16:00 Temp 97.3 97.9 97.9 Pulse 70 66 61 Resp 16 18 16 B/P (MAP) 126/55 137/67 129/67 Pulse Ox 97 97 99 98 O2 Delivery Room Air* Room Air Room Air Room Air O2 Flow Rate 0 FiO2 21 21 21 21 Intake & Output (last 24hrs) 03/04/25 03/04/25 03/05/25 14:59 22:59 06:59 Intake Total 500 ml 400 ml Balance 500 ml 400 ml LABS: Laboratory: Test 03/05/25 16:35 03/05/25 04:59 Range/Units Whole Blood Glucose 140 H 70-110 MG/DL Bedside Glucose Comment Notified Nurse White Blood Count 6.5 4.8-10.8 K/uL Red Blood Count 3.87 L 4.00-5.50 MIL/uL Hemoglobin 11.4 L 12.0-16.0 g/dL Hematocrit 34.8 L 36-48 % Mean Corpuscular Volume 89.9 79-99 fL Mean Corpuscular Hemoglobin 29.5 27.0-33.0 pg Mean Corpuscular Hemoglobin Concent 32.8 32.0-36.0 g/dL Red Cell Distribution Width 13.0 11.0-15.5 % Platelet Count 192 130-400 K/uL Mean Platelet Volume 9.4 7.5-10.5 fL Nucleated Red Blood Cells 0.0 0.0-0.19 % Prothrombin Time 9.8 9.6-11.6 SEC Prothromb Time International Ratio <= 0.93 0.85-1.15 Sodium Level 141 136-145 mmol/L Potassium Level 4.1 3.5-5.1 mmol/L Chloride Level 108 101-111 mmol/L Carbon Dioxide Level 29 21-32 mmol/L Blood Urea Nitrogen 22 H 7-18 mg/dL Creatinine 0.6 0.5-1.0 mg/dL Glomerular Filtration Rate Calc 98 >90 mL/min Random Glucose 112 H 70-105 mg/dL Total Calcium 8.1 L 8.5-10.1 mg/dL ASSESSMENT: Right ankle trimalleolar fracture, s/p ORIF. Status post mechanical fall. Diabetes mellitus. PLAN: Continue pain management. Continue antidiabetics. We will monitor electrolytes. Continue with physical therapy as recommended by orthopedic surgeon. Fall precautions. Case management working on SNF placement for rehab This case was reviewed and discussed with my supervising physician and the above assessment and plan was formulated and agreed upon. ATTESTATION BY PHYSICIAN I have seen and examined the patient. I reviewed the documentation, medical decision making, and treatment plan as noted by the mid-level provider above. I agree with the findings and plan of care. HUNG RANKIN MD, MIRTA L [facility] Mar 05, 2025 19:22
[2025-03-05 20:00] VITALS: BP 138/73; PULSE 65; RESP 17; TEMP 97.7
[2025-03-06] VITALS: BP 123/64; PULSE 60; RESP 17; TEMP 97.8
[2025-03-06 04:00] VITALS: BP 134/65; PULSE 66; RESP 17; TEMP 98
[2025-03-06 08:00] VITALS: BP 122/67; PULSE 66; RESP 17; TEMP 97.8; O2SAT 98
[2025-03-06 12:00] VITALS: BP 134/54; PULSE 68; RESP 17; TEMP 98
--- NOTE | 2025-03-06 16:09 | PN ---
INFECTIOUS DISEASE PROGRESS NOTE Date of Service: Mar 06, 2025 SUBJECTIVE: This is a 69-year-old female patient who was seen and examined at bedside. Patient is s/p open reduction internal fixation of medial and lateral malleoli from the right trimalleolar ankle fracture on 03/02/2025. Remains afebrile, temperature is 98.1. No reports of nausea or vomiting. Patient with no weight-bearing status on the right. Case management working on SNF placement for rehab. PHYSICAL EXAM EYES: Anicteric. Pupils equal and reactive. HENT: No oral thrush seen, moist Oral mucosa. NECK: Supple, no JVD or thyromegaly. LUNGS: Good air entry. No rales, no rhonchi. CARDIOVASCULAR: S1, S2 regular. No murmur heard. ABDOMEN: Soft, non tender, bowel sounds present, no organomegaly. CENTRAL NERVOUS SYSTEM: Awake, alert, oriented x 3. SKIN: No rashes, no swelling. LYMPHATICS: No peripheral lymphadenopathy MUSCULOSKELETAL: No joint swelling, erythema or tenderness. EXTREMITIES: No cyanosis or clubbing. Right ankle trimalleolar fracture, s/p ORIF. BACK: No deformity, no pressure ulcer. GENITOURINARY: No dysuria or hematuria. Vital Sign (Last 12 Hours) 03/06/25 03/06/25 03/06/25 08:00 08:00 12:00 Temp 97.9 98.1 Pulse 66 68 Resp 17 17 B/P (MAP) 122/67 134/54 Pulse Ox 98 98 100 O2 Delivery Room Air Room Air* Room Air O2 Flow Rate 0 FiO2 21 LABS: Laboratory: Test 03/06/25 12:53 03/05/25 04:59 Range/Units Whole Blood Glucose 159 H 70-110 MG/DL Bedside Glucose Comment Notified Nurse White Blood Count 6.5 4.8-10.8 K/uL Red Blood Count 3.87 L 4.00-5.50 MIL/uL Hemoglobin 11.4 L 12.0-16.0 g/dL Hematocrit 34.8 L 36-48 % Mean Corpuscular Volume 89.9 79-99 fL Mean Corpuscular Hemoglobin 29.5 27.0-33.0 pg Mean Corpuscular Hemoglobin Concent 32.8 32.0-36.0 g/dL Red Cell Distribution Width 13.0 11.0-15.5 % Platelet Count 192 130-400 K/uL Mean Platelet Volume 9.4 7.5-10.5 fL Nucleated Red Blood Cells 0.0 0.0-0.19 % Prothrombin Time 9.8 9.6-11.6 SEC Prothromb Time International Ratio <= 0.93 0.85-1.15 Sodium Level 141 136-145 mmol/L Potassium Level 4.1 3.5-5.1 mmol/L Chloride Level 108 101-111 mmol/L Carbon Dioxide Level 29 21-32 mmol/L Blood Urea Nitrogen 22 H 7-18 mg/dL Creatinine 0.6 0.5-1.0 mg/dL Glomerular Filtration Rate Calc 98 >90 mL/min Random Glucose 112 H 70-105 mg/dL Total Calcium 8.1 L 8.5-10.1 mg/dL ASSESSMENT: Right ankle trimalleolar fracture, s/p ORIF on 03/02/2025. Status post mechanical fall. Diabetes mellitus. PLAN: Continue pain management. Continue antidiabetics. We will monitor electrolytes. Continue with physical therapy as recommended by orthopedic surgeon. Fall precautions. Case management working on SNF placement for rehab This case was reviewed and discussed with my supervising physician and the above assessment and plan was formulated and agreed upon. ATTESTATION BY PHYSICIAN I have seen and examined the patient. I reviewed the documentation, medical decision making, and treatment plan as noted by the mid-level provider above. I agree with the findings and plan of care. HUNG RANKIN MD, MIRTA L [facility] Mar 06, 2025 16:09
[2025-03-06] MEDS: HYDROcodone/APAP 5/325 1 TAB TABLET PO PRN (16:22)
--- NOTE | 2025-03-06 17:30 | NUR ---
called [facility] to give report on patient, patient being discharged, gave report to VAZQUEZ Ann
--- NOTE | 2025-03-06 17:55 | NUR ---
discharge patient given printed discharge paperwork, educated patient regarding follow ups, medications, diet, activity, signs and symptoms to report/return to ER. answered patient questions, patient understood. patient awaiting [facility] transport
--- NOTE | 2025-03-06 17:59 | NUR ---
[facility] staff at bedside, transporting patient
--- NOTE | 2025-03-06 22:22 | DS ---
Discharge Summary Hospital Course FINAL DISCHARGE DIAGNOSIS: Right ankle trimalleolar fracture, s/p ORIF on 03/02/2025. Status post mechanical fall. Diabetes mellitus. PLAN: Discharge patient to [facility] today. Refer to medication reconciliation. This case was reviewed and discussed with my supervising physician Dr. Rankin and the above assessment and plan was formulated and agreed upon. ATTESTATION BY PHYSICIAN I have seen and examined the patient. I reviewed the documentation, medical decision making, and treatment plan as noted by the mid-level provider above. I agree with the findings and plan of care. HUNG RANKIN MD, MIRTA L [facility] Mar 06, 2025 22:22
[2025-03-10] MEDS ORDERED: (Semaglutide (Ozempic) 2 MG) SQ SCH (09:00)
== END 2025-03-06 17:59 | DRG 494 ==
LOC: EDH 10:28 → EDHIP 13:17 → 4DH 19:30
PROVIDERS: ADMIT Internal Medicine Infectious Disease; ATTEND Internal Medicine Infectious Disease
PROC: 0QSG04Z Reposition Right Tibia with Internal Fixation Device, Open Approach (ICD-10-PCS; 2025-03-02)
PROC: 0QSJ04Z Reposition Right Fibula with Internal Fixation Device, Open Approach (ICD-10-PCS; principal; 2025-03-02 16:30)
DX: S82.851A Displaced trimalleolar fracture of right lower leg, initial encounter for closed fracture (principal); E11.9 Type 2 diabetes mellitus without complications; I10 Essential (primary) hypertension; W01.0XXA Fall on same level from slipping, tripping and stumbling without subsequent striking against object, initial encounter; Y93.89 Activity, other specified; Y92.89 Other specified places as the place of occurrence of the external cause; Y99.8 Other external cause status; Z83.3 Family history of diabetes mellitus
CPT/HCPCS: 29515; 36415; 71045; 73140; 73610; 80048; 80053; 82948; 83735; 85025; 85027; 85610; 85730; 93005; 99285; G0378; J0330; J0690; J1100; J1171; J1650; J1815; J1885; J2003; J2250; J2270; J2371; J2704; J2795; J3490